=== PATIENT | female | born 1945 | race Caucasian/White ===

== ENCOUNTER 2016-06-04 06:55 | Emergency (ER) | payer MEDICARE, OTHER ==
[2016-06-04] VITALS (10 sets, daily range): BP systolic 114–143; BP diastolic 43–86; PULSE 48–105; RESP 16–27; O2SAT 96–100
[~2016-06-04] VITALS: Ht 166.4 cm; Wt 73.6 kg
[2016-06-04] MEDS ORDERED: Furosemide 10 mg/mL 4 mL Inj IVPUSH ONE (07:35)
[2016-06-04 07:46] LABS: BASOPHILS % (AUTO) 0.2 % (0-3); EOSINOPHILS % (AUTO) 2.1 % (0-5); MONOCYTES % (AUTO) 5.6 % (4-12); Mean Corpuscular Hemoglobin 30.9 pg (27.0-35.0); Mean Corpuscular Volume 93.7 fL (81-100); NEUTROPHILS % (AUTO) 78.1 % (40-74); Platelet Count 178 bil/L (150-400)
[2016-06-04 08:06] LABS: TROPONIN T 0.01 ug/L (0.0-0.011)
[2016-06-04 08:17] LABS: Magnesium 1.9 mg/dL (1.6-2.6)
--- NOTE | 2016-06-04 08:51 | ED.REPORT ---
HPI-Chest Pain 40 and Over Date of Service Jun 04, 2016 ED Provider: Clayton Ng DO History of Present Illness: Patient is a 71 y.o. F with past medical history significant for multiple TX last 2014, s/p multiple stents x 4, reoprted blockage in RCA scheduled to undergo repeat circumflex stenting 06/14/16, atrial fibrilation, aortic stenosis. Presents to ED with chest pain that began yesterday in the middle of the night described as jaw pain that radiated down to chest with SOB, patient walked into husbands room, went to the bathroom and pain calmed down. Patient stated that she was pain free for the remainder of the day. Patient stated that this morning that pain occured again, she stated that the pain woke patient from sleep and felt more severe than yesteray, which prompted patient to call for EMS transport to ED. At time of examination jaw and chest pain resolved, no shortness of breath. Patient denies syncope, dizziness, changes in vision, headache, nausea, vomiting. [employer] [facility] Dr. Deal U Cailin transferrer Dr. Del Cid [facility] cardiothoracic surgeon Dr. Chacon Nursing Notes Stated Complaint: CHEST PAIN RESOLVED Nursing Notes Reviewed: Yes Allergies: Coded Allergies: No Known Allergies (Unverified , 06/04/16) Scheduled Ascorbic Acid (Vitamin C) 250 Mg Tab.chew 250 MG PO DAILY Aspirin (Aspirin) 81 Mg Tablet 81 MG PO DAILY Atenolol (Atenolol) 50 Mg Tablet 25 MG PO BID Atorvastatin Calcium (Atorvastatin Calcium) 80 Mg Tablet 80 MG PO HS Ca Carbonate/Vitamin D3/Vit K (Viactiv Soft Chew Tablet) 1 Each Tab.chew 1 EACH PO 4 times a week Cholecalciferol (Vitamin D3) (Vitamin D3) 2,000 Unit Tablet 2,000 UNIT PO DAILY Furosemide (Furosemide) 40 Mg Tablet 80 MG PO DAILY Potassium Chloride (Potassium Chloride) 10 Meq Capsule.er 10 MEQ PO HS TAKE WITH FOOD Ubidecarenone (Co Q10) 100 Mg Capsule 100 MG PO DAILY Scheduled PRN Lorazepam (Lorazepam) 0.5 Mg Tablet 0.5 MG PO HS PRN PRN For Insomnia Miscellaneous Medications Losartan Potassium (Losartan Potassium) 50 Mg Tablet 50 MG PO Multivitamin (Once Daily) 1 Each Tablet 1 EACH PO General Time Seen by MD: 07:14 Chief Complaint Chest pain, Shortness of breath Hx Obtained From: Patient, EMS Sudden in Onset?: Yes Onset Occurred: 1 - 4 hours ago Symptom Duration: Since onset Location: : Jaw: Substernal Radiation: : Jaw Severity: Current: No pain currently Severity: Maximum: Moderate Past Medical History Past Medical History Notes: Past Medical History TX x2 Stent x 4 Atrial fibrilation HTN Past Surgical History stent x 4 Physical Exam Initial Vital Signs Vital Signs (First) Date Time Temp Pulse Resp B/P Pulse Ox O2 Delivery O2 Flow Rate FiO2 06/04/16 07:18 36.1 105 16 143/86 98 Room Air Initial VS: Reviewed, Vital signs abnormal (Tachycardic, hypertensive) Head / Eyes: Atraumatic, Normocephalic, PERRL ENT: Mucous membranes moist, Conjunctiva normal, No scleral icterus Neck: Supple, Non-tender, Full range of motion Back: No CVA tenderness Lymphatic: No lymphadenopathy Extremities: Vascular intact, Neuro intact, No swelling, No tenderness Skin: Warm, Dry, No cyanosis Neurologic: Alert, Oriented, Nonfocal Psychiatric: Mood/affect normal, Behavior normal, Normal thought content General/Constitutional: Awake, Alert, No acute distress, Well appearing Respiratory / Chest: Breath sounds NL, Breath sounds = bilat, No respiratory distress, No rales, No rhonchi, No wheezing, No stridor, No chest tenderness Heart Rate / Rhythm: Positive: Irreg irregular rhythm, Tachycardia Heart Sounds / Murmur: Positive: Murmur location... (2nd R intercostal), Murmur present... (III/), Systolic murmur present.. (III/) Abdomen: Soft, Non-tender, McBurney's non-tender, No guarding, No rebound, BS normoactive, No distention, No hernia, No palpable mass Interpretation & Diagnostics Lab Results Interpretation Result Diagram: 06/04/16 0735 06/04/16 0735 Test 06/04/16 07:35 06/04/16 12:11 White Blood Count 8.2th/mm3 (3.8-10.1) Red Blood Count 3.79mil/mm3 (3.90-5.20) Hemoglobin 11.7g/dL (12.0-15.6) Hematocrit 35.5% (35.0-46.0) Mean Corpuscular Volume 93.7fL (81-100) Mean Corpuscular Hemoglobin 30.9pg (27.0-35.0) Mean Corpuscular Hemoglobin Concent 33.0% (32.0-37.0) Red Cell Distribution Width 13.7% (12.3-15.4) Platelet Count 178bil/L (150-400) Neutrophils (%) (Auto) 78.1% (40-74) Lymphocytes (%) (Auto) 13.9% (14-46) Monocytes (%) (Auto) 5.6% (4-12) Eosinophils (%) (Auto) 2.1% (0-5) Basophils (%) (Auto) 0.2% (0-3) Sodium Level 139mEq/L (134-144) Potassium Level 3.8mEq/L (3.5-5.2) Chloride Level 101mEq/L (97-108) Carbon Dioxide Level 23mmol/L (18-29) Blood Urea Nitrogen 25mg/dL (8-27) Creatinine 1.00mg/dL (0.57-1.00) Estimat Glomerular Filtration Rate 78mL/min (>59) Glucose Level 138mg/dL (60-99) Calcium Level 9.0mg/dL (8.5-10.1) Magnesium Level 1.9mg/dL (1.6-2.6) Total Bilirubin 0.6mg/dL (0.0-1.2) Aspartate Amino Transf (AST/SGOT) 44U/L (0-50) Alanine Aminotransferase (ALT/SGPT) 30U/L (0-32) Alkaline Phosphatase 106U/L (25-165) Total Protein 6.5g/dL (6.4-8.4) Albumin 3.7g/dL (3.4-5.0) Hold [place] Top Tube Received (Received) Troponin T 0.010ug/L (0.0-0.011) ECG Interpretation Time: 07:00 Interpreted by: ED physician Normal ECG Interpretation: Normal QRS Abnormal Rate: 110 Abnormal T wave or ST segment: T-waves peaked (V3) Rhythm / Conduction: Atrial fibrillation Atrium and Vent Size: Ventricle enlarged - L Time: 08:21 Normal ECG Interpretation: Normal sinus rhythm Abnormal Rate: Rate (69) Atrium and Vent Size: Ventricle enlarged - L Repeat ECG: Repeat ECG ch from prior (conversion to normal sinus rhythm) ECG Interpretation: rate 55 NSR LVH q wave in leads II, III, AVF PCV Time: 12:03 Repeat ECG: Repeat ECG ch from prior Re-Eval/Medical Decision Med Decision/Clinical Course 71 y.o. F with past history of TX, stenting x 4, failed stent, repeat stent scheduled 06/14/16 CHADS Vasc score 2 Patient's presentation and symptoms are consistent with unstable angina and paroxysmal atrial fibrillation Given that patient has scheduled cardiac intervention for stenting of circumflex occlusion and replacement of aortic valve, patient will likley need the timeline for intervention will need to be accelerated as etiology of chest pain is related to underlying coronary artery disease and aortic valve stenosis. Given Heparin bolus cardiology protocol x1 CBC negative for acute infection, h/h stable CMP negative Troponin trended Q2 initial negative, repeat negative, Time of Eval: 09:30 Patient Status: Condition improved Re-Evaluation/Progress Note: Spontaneous conversion to NSR Repeat troponin negative V/S stable Time of Eval: 12:05 Patient Status: Condition worsened Re-Evaluation/Progress Note: Patient noted repeat chest pain EKG noted occasional PVC Start Heparin drip V/S stable Repeat Troponin ordered Time of Eval: 12:15 Patient Status: Condition improved Re-Evaluation/Progress Note: Patient now chest pain free V/S stable Time of Eval: 12:59 Patient Status: Condition unchanged Re-Evaluation/Progress Note: Repeat troponin negative V/S stable Consultation #1: Consulted With: Cardiology (Dr. Del Cid [facility]) Requested Call at: 08:54 Call Returned at: 09:20 Vice President Of Instruction: Agrees with plan Note: Discussed patient presentation paroxysmal A-fib, unstable angia and need for potential transfer to [facility] for sooner intervention. Agrees with anticoagulation, and transfer to [facility]. Will work on transfer to [facility] coordinated through Dr. Johnathan Aguirre Patient is scheduled for stenting of circumflex and surgical AVR. Consultation #2: Requested Call at: 09:45 Call Returned at: 10:00 Note: Spoke to RN for [facility] tx center, working on transfer of care to [facility] Consultation #3: Consulted With: Cardiology (Dr. Anna Bernal) Requested Call at: 09:30 Call Returned at: 10:51 Vice President Of Instruction: Accepts admit Note: Discussed patient plan and need for transfer. Accepts transfer will corrdinate with hospital for available bed and call when a firm ETA is known Counseled Regarding: Diagnosis, Lab results, Need for transfer Discharge & Departure Primary Impression: Unstable angina Additional Impression: Atrial fibrillation with RVR Disposition: Transfer, Acute Care Facility Patient Instructions: Chest Pain (ED) Crit Care Except Billable Proc Time Spent: 30-74 minutes Services Performed: Patient management by me, Time spent at bedside, Reviewing test results Critical Care Notes: See MDM GUCCI MAST DO Jun 04, 2016 07:30 Clayton Ng DO Jun 04, 2016 14:16
[2016-06-04] MEDS ORDERED: Heparin 5,000 Unit/mL Inj IVPUSH ONE ×2 (09:25→11:50)
--- NOTE | 2016-06-04 10:21 | DRSVH ---
PROCEDURE: X-RAY CHEST ONE VIEW, PORTABLE ([id number]) INDICATIONS: cp TECHNIQUE: One view of the chest was acquired. COMPARISON: None. FINDINGS: Surgical changes and devices: None. Lungs and pleura: No pleural effusions or pneumothorax. Interstitial prominence. Mediastinum: Mediastinal contours appear normal. Heart size is enlarged. Bones and chest wall: No suspicious bony lesions. Overlying soft tissues appear unremarkable. IMPRESSION: Mild interstitial prominence and cardiomegaly is present. Early developing edema cannot be excluded. Dictated by: Erich Rubin [facility] Interpreted: Selma Basilio MD on 06/04/2016 at 10:21 Transcribed by: SUE on 06/04/2016 at 10:21 Approved by: Selma Basilio M.D. on 06/04/2016 at 16:29
[2016-06-04] MEDS ORDERED: Nitroglycerin 2% 1 Gm Ointment TOPICAL ONE (11:50)
[2016-06-04] MEDS ORDERED: Heparin 25K Unit/500mL 0.45 NS 25,000 UNIT in IV Premix 1 EACH IV ONE (11:50)
[2016-06-04] MEDS ORDERED: ATOR80TA77 PO (13:03)
[2016-06-04] MEDS ORDERED: CA C1TAB88 PO (13:03)
[2016-06-04] MEDS ORDERED: UBID100C27 PO (13:03)
[2016-06-04] MEDS ORDERED: MULT-666 PO (13:03)
[2016-06-04] MEDS ORDERED: POTA10CA42 PO (13:03)
[2016-06-04] MEDS ORDERED: LOSA50TA37 PO (13:03)
[2016-06-04] MEDS ORDERED: ASCO250T7 PO (13:03)
[2016-06-04] MEDS ORDERED: LORA0.5T PO (13:03)
[2016-06-04] MEDS ORDERED: FURO40TA4 PO (13:03)
[2016-06-04] MEDS ORDERED: CHOL200025 PO (13:03)
[2016-06-04] MEDS ORDERED: ATEN50TA PO (13:03)
[2016-06-04] MEDS ORDERED: ASPI-973 PO (13:03)
== END 2016-06-04 19:01 | disposition short-term general hospital (02) ==
LOC: SED 06:55
DX: I20.0 Unstable angina (principal); I48.91 Unspecified atrial fibrillation; I10 Essential (primary) hypertension; I25.2 Old myocardial infarction
CPT/HCPCS: 36415; 71010; 80053; 83735; 84484; 85025; 85730; 93005; 96374; 96375; 99285; J1644; J1940